=== PATIENT | female | born 1970 | race Caucasian/White ===

== ENCOUNTER 2019-04-17 07:31 | Emergency (ER) | payer MEDICAID ==
[~2019-04-17] VITALS: Ht 165.1 cm; Wt 63.0 kg
[2019-04-17] MEDS ORDERED: ACETAMINOPHEN 325MG TABLET PO STA (08:46)
[2019-04-17 11:42] VITALS: BP 91/46
== END 2019-04-17 13:37 | disposition home or self-care (01) ==
LOC: ER 07:31
DX: M25.552 Pain in left hip (principal); M79.604 Pain in right leg; J44.9 Chronic obstructive pulmonary disease, unspecified; W19.XXXA Unspecified fall, initial encounter; Y92.9 Unspecified place or not applicable
CPT/HCPCS: 73502; 73590; 93971; 99284

== ENCOUNTER 2019-06-22 00:15 | Emergency (ER) | payer MEDICAID ==
[~2019-06-22] VITALS: Ht 160 cm; Wt 65.0 kg
[2019-06-22 00:16] VITALS: BP 148/86
== END 2019-06-22 00:28 | disposition left against medical advice (07) ==
LOC: ER 00:15
DX: R41.82 Altered mental status, unspecified (principal); Z53.21 Procedure and treatment not carried out due to patient leaving prior to being seen by health care provider

== ENCOUNTER 2019-06-22 03:23 | Emergency (ER) | payer MEDICAID ==
[~2019-06-22] VITALS: Ht 154.9 cm; Wt 49.0 kg
[2019-06-22 03:32] VITALS: BP 119/80
== END 2019-06-22 06:43 | disposition left against medical advice (07) ==
LOC: ER 03:23
DX: F41.9 Anxiety disorder, unspecified (principal); Z53.21 Procedure and treatment not carried out due to patient leaving prior to being seen by health care provider